=== PATIENT | female | born 1935 | race Hispanic/Latino ===

== ENCOUNTER → 2018-04-11 | Outpatient (CLI) | payer MEDICARE | END | disposition home or self-care (01) | LOC: SHCH 12:59 | PROVIDERS: ATTEND Internal Medicine Cardiovascular Disease | DX: I31.3 Pericardial effusion (noninflammatory) (principal); I35.8 Other nonrheumatic aortic valve disorders; I25.10 Atherosclerotic heart disease of native coronary artery without angina pectoris; R29.898 Other symptoms and signs involving the musculoskeletal system | CPT/HCPCS: 93306 ==

== ENCOUNTER → 2018-07-06 | Outpatient (CLI) | payer MEDICARE | END | disposition home or self-care (01) | LOC: SHCH 09:32 | PROVIDERS: ATTEND Internal Medicine Cardiovascular Disease | DX: I08.1 Rheumatic disorders of both mitral and tricuspid valves (principal); I25.5 Ischemic cardiomyopathy; I25.10 Atherosclerotic heart disease of native coronary artery without angina pectoris | CPT/HCPCS: 93306 ==

== ENCOUNTER → 2018-12-12 | Outpatient (CLI) | payer MEDICARE ==
[~2018-12-12] MED LIST: ACET650T9 PO; AEC81 PO; ATOR10TA69 PO; CALC-1174 PO; CARV3.12 PO; CLOP75TA14 PO; FOLI1TAB15 PO; FURO20TA4 PO; GABA-529 PO; INSU100I26 SQ; ISOS30TA6 PO; LEVO25TA54 PO; LISI-617 PO; NITR0.4T50 SL; SAXA1TBM PO; SULF500T8 PO
== END | disposition home or self-care (01) ==
LOC: SHCH 08:17
PROVIDERS: ATTEND Internal Medicine Cardiovascular Disease
DX: I11.9 Hypertensive heart disease without heart failure (principal); I35.8 Other nonrheumatic aortic valve disorders; I25.5 Ischemic cardiomyopathy; R29.898 Other symptoms and signs involving the musculoskeletal system
CPT/HCPCS: 93306

== ENCOUNTER 2019-01-17 08:33 | Observation (INO) | payer MEDICARE ==
[2019-01-12 09:18] LABS: BASOPHILS % (AUTO) 0.8 % (0.0-5.0); EOSINOPHILS % (AUTO) 3.7 % (0.0-8.0); HEMATOCRIT 38.5 % (36-48); LYMPHOCYTES % (AUTO) 23.6 % (21.0-51.0); MEAN CORPUSCULAR HEMOGLOBIN 30.6 pg (27.0-33.0); MEAN CORPUSCULAR HGB CONC 33.5 g/dL (32.0-36.0); MEAN CORPUSCULAR VOLUME 91.4 fL (79-99); MONOCYTES % (AUTO) 9.1 % (3.0-13.0); NEUTROPHILS % (AUTO) 62.8 % (40.0-77.0); PLATELET COUNT (AUTO) 286 K/uL (130-400); RED BLOOD CELL COUNT(AUTO) 4.21 MIL/uL (4.00-5.50); RED CELL DISTRIBUTION WIDTH 16.1 % (11.0-15.5); WHITE BLOOD COUNT (AUTO) 7.5 K/uL (4.8-10.8)
[2019-01-12 09:20] VITALS: BP 136/50
[2019-01-12 09:25] LABS: CREATININE 0.8 mg/dL (0.5-1.5); POTASSIUM 4.2 mmol/L (3.5-5.1)
[2019-01-12 09:31] LABS: PARTIAL THROMBOPLASTIN TIME 27.7 SEC (26.3-35.5); PROTHROMBIN TIME 10.5 SEC (9.6-11.6)
--- NOTE | 2019-01-16 14:04 | NUR ---
BMP Na 132 drawn 01/12/19 reported to Obed Sanches PAC, no new orders
[2019-01-17] VITALS (10 sets, daily range): BP systolic 102–142; BP diastolic 49–66
[~2019-01-17] VITALS: Ht 144.8 cm; Wt 43.8 kg
[~2019-01-17 08:33] MED LIST changes: +INSLAN SQ; -INSU100I26 SQ; -LEVO25TA54 PO; -SAXA1TBM PO; +SAXA5TAB PO; +SODIUM CHLORIDE 0.9% 1000ML 1,000 ML IV SCH
[2019-01-17] MEDS ORDERED: LIDOCAINE HCL 1% MDV 50ML VIAL ONE (11:41)
[2019-01-17] MEDS ORDERED: BUPIVACAINE/PF 0.25% 30ML VIAL IJ ONE (11:41)
[2019-01-17] MEDS ORDERED: CEFAZOLIN SODIUM 1 GM VIAL ONE (11:41)
[2019-01-17] MEDS ORDERED: MEPERIDINE-PF 25 MG/ML SYG ONE (12:32)
[2019-01-17] MEDS ORDERED: MIDAZOLAM HCL 1 MG/ML 2ML VIAL ONE (12:32)
[2019-01-17] MEDS ORDERED: OCTYL 2-CYANOACRYLATE 1 EACH TP ONE (13:00)
[2019-01-17] MEDS ORDERED: ACETAMINOPHEN-CODEINE 300/30MG TAB PO PRN (13:45)
[2019-01-17] MEDS ORDERED: GLUCAGON 1MG KIT 1 MG ML IM PRN (13:45)
[2019-01-17] MEDS ORDERED: DEXTROSE 50%-WATER 50 ML DISP.SYRIN IV PRN (13:45)
[2019-01-17] MEDS ORDERED: ONDANSETRON HCL 4 MG/2 ML VIAL IV PRN (13:45)
[2019-01-17] MEDS ORDERED: ACETAMINOPHEN EXTENDED RELEASE 650 MG TABLET PO PRN (13:45)
[2019-01-17] MEDS ORDERED: NITROGLYCERIN 0.4 MG SL TAB SL SCH (13:45)
[2019-01-17] MEDS: ACETAMINOPHEN-CODEINE 300/30MG TAB PO PRN ×2 (14:54→20:39)
[2019-01-17] MEDS: INSULIN HUMULIN R 100 UNIT/ML 3ML SQ SCH ×2 (16:30→21:00)
--- NOTE | 2019-01-17 19:42 | NUR ---
STATUS PT RECEIVED FROM SENIOR SCR[facility] S/P A[facility] BIOTRONIC @ 1410 VIA BED. FAMILY @ BEDSIDE. A/O X 2-3; FORGETFUL. NO SOB. NO DISTRESS NOTED. DENIES CHEST PAIN OR DISCOMFORT. DENIES PALPITATIONS. DENIES INCISIONAL PAIN. TELE: SR 60s. LT UPPER CHEST PRESSURE DSG DRY & INTACT. NO BLEEDING, NO HEMATOMA NOTED. SLING TO LT ARM. IC JEWELL APPLIED. DENIES N/V AND/OD DIARRHEA. PT & FAMILY TO MAINTAIN BEDREST X 4 HRS. ARM RESTRICTION REINFORCED. PT & FAMILY ORIENTED TO RM. INSTRUCTED TO CALL FOR ASSISTANCE. CALL ARLENE W/IN REACH.
[2019-01-17] MEDS ORDERED: GABAPENTIN 100 MG CAPSULE PO SCH (21:00)
[2019-01-17] MEDS ORDERED: ATORVASTATIN CALCIUM 10 MG TABLET PO SCH (21:00)
[2019-01-17] MEDS ORDERED: SULFASALAZINE 500 MG TAB.DR PO SCH (21:00)
[2019-01-17] MEDS: CEFAZOLIN SODIUM 1 GM VIAL IVP SCH (22:38)
[2019-01-17] MEDS: CALCIUM 600 + VITAMIN D 400 TABLET PO SCH (22:38)
[2019-01-18 00:07] VITALS: BP 100/50
[2019-01-18] MEDS: CARVEDILOL 3.125 MG TABLET PO SCH ×2 (00:30→09:53)
[2019-01-18 03:59] VITALS: BP 98/52
[2019-01-18] MEDS: INSULIN HUMULIN R 100 UNIT/ML 3ML SQ SCH ×2 (06:27→11:30)
[2019-01-18] MEDS: CEFAZOLIN SODIUM 1 GM VIAL IVP SCH (06:38)
[2019-01-18 07:17] VITALS: BP 112/53
[2019-01-18] MEDS ORDERED: INSULIN GLARGINE 100 UNITS/ML 10 ML VIAL SQ SCH (08:00)
[2019-01-18] MEDS ORDERED: FUROSEMIDE 20 MG TABLET PO SCH (09:00)
[2019-01-18] MEDS ORDERED: ASPIRIN 81 MG EC TAB PO SCH (09:00)
[2019-01-18] MEDS ORDERED: LISINOPRIL 5 MG TABLET PO SCH (09:00)
[2019-01-18] MEDS ORDERED: CLOPIDOGREL BISULFATE 75 MG TAB PO SCH (09:00)
[2019-01-18] MEDS ORDERED: FOLIC ACID 1 MG TABLET PO SCH (09:00)
[2019-01-18] MEDS ORDERED: ISOSORBIDE MONO 30MG TAB SR PO SCH (09:00)
[2019-01-18] MEDS: CALCIUM 600 + VITAMIN D 400 TABLET PO SCH (09:53)
[2019-01-18] MEDS ORDERED: DOXY100T2 PO (10:23)
[2019-01-18 11:11] VITALS: BP 120/57
[2019-01-18] MEDS ORDERED: IOHEXOL 350 MG/ML 100ML INFUS..BTL IV ONE (11:34)
[2019-01-18] MEDS ORDERED: IOHEXOL-350 75 ML VIAL IV ONE (11:35)
== END 2019-01-18 16:00 | disposition home or self-care (01) ==
LOC: DAH 08:33 → 2AH 08:34
PROVIDERS: ADMIT Internal Medicine; ATTEND Internal Medicine
DX: I25.5 Ischemic cardiomyopathy (principal); E03.9 Hypothyroidism, unspecified; E11.9 Type 2 diabetes mellitus without complications; E78.2 Mixed hyperlipidemia; I11.0 Hypertensive heart disease with heart failure; I50.42 Chronic combined systolic (congestive) and diastolic (congestive) heart failure; I25.10 Atherosclerotic heart disease of native coronary artery without angina pectoris; J84.10 Pulmonary fibrosis, unspecified; G62.9 Polyneuropathy, unspecified; M51.9 Unspecified thoracic, thoracolumbar and lumbosacral intervertebral disc disorder; M81.0 Age-related osteoporosis without current pathological fracture; F03.90 Unspecified dementia, unspecified severity, without behavioral disturbance, psychotic disturbance, mood disturbance, and anxiety; Z90.710 Acquired absence of both cervix and uterus; Z95.5 Presence of coronary angioplasty implant and graft; Z95.810 Presence of automatic (implantable) cardiac defibrillator; Z83.3 Family history of diabetes mellitus
CPT/HCPCS: 33249; 36415; 71046; 80048; 82948 ×5; 85025; 85610; 85730; 93005; 96374; 96376; A4218; A4606; C1722; C1894; C1895; G0378 ×31; J0690 ×2; J2175; J2250; J3490 ×2; J7030; 99156; 99157; Q9967

== ENCOUNTER → 2021-02-13 | Outpatient (CLI) | payer MEDICARE ==
[~2021-02-13] MED LIST changes: +DOXY100T2 PO; -ISOS30TA6 PO; +ISOS30TA92 PO; -LISI-617 PO; +LISI-809 PO; -SODIUM CHLORIDE 0.9% 1000ML 1,000 ML IV SCH
== END | disposition home or self-care (01) ==
LOC: SHCH 09:12
PROVIDERS: ATTEND Internal Medicine Cardiovascular Disease
DX: I08.3 Combined rheumatic disorders of mitral, aortic and tricuspid valves (principal); I42.0 Dilated cardiomyopathy; I70.293 Other atherosclerosis of native arteries of extremities, bilateral legs; I65.23 Occlusion and stenosis of bilateral carotid arteries; E11.51 Type 2 diabetes mellitus with diabetic peripheral angiopathy without gangrene; E78.5 Hyperlipidemia, unspecified; I11.9 Hypertensive heart disease without heart failure; R55 Syncope and collapse
CPT/HCPCS: 93306; 93356; 93925

== ENCOUNTER 2023-01-06 07:30 | Day surgery (SDC) | payer MEDICARE ==
[2022-12-31 15:12] LABS: BASOPHILS % (AUTO) 1.2 % (0.0-5.0); EOSINOPHILS % (AUTO) 10.3 % (0.0-8.0); LYMPHOCYTES % (AUTO) 23.8 % (21.0-51.0); MEAN CORPUSCULAR HEMOGLOBIN 29.7 pg (27.0-33.0); MEAN CORPUSCULAR HGB CONC 33.5 g/dL (32.0-36.0); MEAN CORPUSCULAR VOLUME 88.5 fL (79-99); MONOCYTES % (AUTO) 7.4 % (3.0-13.0); PLATELET COUNT (AUTO) 273 K/uL (130-400); RED BLOOD CELL COUNT(AUTO) 3.84 MIL/uL (4.00-5.50); RED CELL DISTRIBUTION WIDTH 14.3 % (11.0-15.5); WHITE BLOOD COUNT (AUTO) 7.6 K/uL (4.8-10.8)
[2022-12-31 15:21] LABS: CREATININE 1.3 mg/dL (0.5-1.5); POTASSIUM 4.4 mmol/L (3.5-5.1)
[2022-12-31 15:23] LABS: PROTHROMBIN TIME 10.9 SEC (9.6-11.6)
[2022-12-31 15:24] LABS: PARTIAL THROMBOPLASTIN TIME 27.1 SEC (26.3-35.5)
[2022-12-31 15:33] VITALS: BP 176/65
[2023-01-06] VITALS (11 sets, daily range): BP systolic 117–206; BP diastolic 34–69
[~2023-01-06] VITALS: Ht 142.2 cm; Wt 44.6 kg
[~2023-01-06 07:30] MED LIST changes: +0.9% NACL 500ML IV.SOLN 500 ML IV SCH; -ACET650T9 PO; +ACETAMINOPHEN PO; -CALC-1174 PO; +CALCIUM PO; +CEFAZOLIN SODIUM 2 GM VIAL IVPB SCH; +CLOP-31 PO; -CLOP75TA14 PO; -DOXY100T2 PO; -INSLAN SQ; +INSU100I26 SQ; +LEVO50CA4 PO; -LISI-809 PO; +LISI5TAB21 PO; +NITR0.4T SL; -NITR0.4T50 SL; -SULF500T8 PO
[2023-01-06] MEDS ORDERED: 0.9%NACL 1000ML 1,000 ML IV ONE (07:48)
[2023-01-06 08:05] LABS: CREATININE 1.6 mg/dL (0.5-1.5); POTASSIUM 3.9 mmol/L (3.5-5.1)
[2023-01-06] MEDS ORDERED: LIDOCAINE HCL 1% MDV 50ML VIAL ONE (09:27)
[2023-01-06] MEDS ORDERED: BUPIVACAINE/PF 0.25% 10ML VIAL IJ ONE (09:27)
[2023-01-06] MEDS ORDERED: CEFAZOLIN SODIUM 1 GM VIAL ONE (09:27)
[2023-01-06] MEDS ORDERED: IOHEXOL-350 50ML VIAL IV ONE (09:27)
[2023-01-06] MEDS ORDERED: MIDAZOLAM HCL 1 MG/ML 2ML VIAL ONE ×2 (10:47→11:00)
[2023-01-06] MEDS ORDERED: MEPERIDINE-PF 25 MG/ML SYG ONE ×2 (10:48→11:00)
[2023-01-06] MEDS ORDERED: BACITRACIN 1 EACH PACKET TP ONE (12:24)
[2023-01-06] MEDS ORDERED: TRAM50TA4 PO (12:48)
[2023-01-06] MEDS ORDERED: ACETAMINOPHEN WITH CODEINE 1 TAB TAB PO PRN (13:00)
[2023-01-06] MEDS ORDERED: ACETAMINOPHEN 500 MG TABLET PO PRN (13:00)
[2023-01-06] MEDS ORDERED: ACETAMINOPHEN WITH CODEINE 1 TAB TAB ONE (13:21)
== END 2023-01-06 16:20 | disposition home or self-care (01) ==
LOC: DAH 07:30
PROVIDERS: ATTEND Internal Medicine Cardiovascular Disease
DX: T82.198A Other mechanical complication of other cardiac electronic device, initial encounter (principal); T82.190A Other mechanical complication of cardiac electrode, initial encounter; I25.5 Ischemic cardiomyopathy; I45.10 Unspecified right bundle-branch block; I11.0 Hypertensive heart disease with heart failure; I50.22 Chronic systolic (congestive) heart failure; E78.5 Hyperlipidemia, unspecified; E11.9 Type 2 diabetes mellitus without complications; E03.9 Hypothyroidism, unspecified; I25.2 Old myocardial infarction; M81.0 Age-related osteoporosis without current pathological fracture; Z79.82 Long term (current) use of aspirin; Z79.01 Long term (current) use of anticoagulants; Z79.899 Other long term (current) drug therapy; Z79.890 Hormone replacement therapy; Z98.890 Other specified postprocedural states; Z90.710 Acquired absence of both cervix and uterus; Z82.49 Family history of ischemic heart disease and other diseases of the circulatory system; Z83.3 Family history of diabetes mellitus; Y83.8 Other surgical procedures as the cause of abnormal reaction of the patient, or of later complication, without mention of misadventure at the time of the procedure
CPT/HCPCS: 80048 ×2; 85025; 85610; 85730; 36415 ×2; 93005; 33216; 82948 ×2; 71045; 33223; C1769; C1898; J0690; J7030; J2250; J3490 ×2; J2175; A4215; A4335; A4222; A4221; A4663; A4216; A4606; A4223 ×3; A4554; 99156; 99157; Q9967

== ENCOUNTER → 2024-04-28 | Outpatient (CLI) | payer MEDICARE ==
[~2024-04-28] MED LIST changes: -0.9% NACL 500ML IV.SOLN 500 ML IV SCH; -CEFAZOLIN SODIUM 2 GM VIAL IVPB SCH; +TRAM50TA4 PO
== END | disposition home or self-care (01) ==
LOC: SHCH 12:36
PROVIDERS: ATTEND Internal Medicine Cardiovascular Disease
DX: I08.3 Combined rheumatic disorders of mitral, aortic and tricuspid valves (principal); I25.5 Ischemic cardiomyopathy; I10 Essential (primary) hypertension
CPT/HCPCS: 93306